=== PATIENT | female | born 1975 ===

== ENCOUNTER 2022-12-02 21:39 | Emergency (ER) | payer OTHER ==
[2022-12-02 22:01] VITALS: BP 120/80; PULSE 74; RESP 16; TEMP 98.3; BMI 28.0
== END 2022-12-02 23:33 | disposition home or self-care (01) ==
LOC: FER 21:39
PROC: 2W3JX1Z Immobilization of Right Finger using Splint (ICD-10-PCS; principal; 2022-12-02)
DX: S62.646A Nondisplaced fracture of proximal phalanx of right little finger, initial encounter for closed fracture (principal); W22.09XA Striking against other stationary object, initial encounter
CPT/HCPCS: 73130-TC-RT-FY; 99283-25